=== PATIENT | female | born 1965 | race Caucasian/White ===

== ENCOUNTER 2016-04-20 18:43 | Emergency (ER) | payer MEDICARE, OTHER ==
[2016-04-20 21:23] LABS: HEMOGLOBIN 12.5 gm/dl (12.3-15.3); RED BLOOD COUNT 3.98 M/UL (4.00-5.10); WHITE BLOOD COUNT 11.7 K/UL (4.5-11.0)
== END 2016-04-21 | disposition other institution (70) ==
LOC: ER1 18:43
PROVIDERS: Nurse Practitioner Family
DX: K92.2 Gastrointestinal hemorrhage, unspecified (principal); D68.0 Von Willebrand disease; Z88.6 Allergy status to analgesic agent; Z88.8 Allergy status to other drugs, medicaments and biological substances; Z79.899 Other long term (current) drug therapy
CPT/HCPCS: 36415; 81001; 82272; 85025; 86850; 86900; 86901; 87086; 96374; 99285

== ENCOUNTER 2016-04-29 21:23 | Emergency (ER) | payer MEDICARE, OTHER | END 2016-04-29 23:25 | disposition home or self-care (01) | LOC: ER1 21:23 | DX: L27.0 Generalized skin eruption due to drugs and medicaments taken internally (principal); T45.8X5A Adverse effect of other primarily systemic and hematological agents, initial encounter; D68.0 Von Willebrand disease; F17.200 Nicotine dependence, unspecified, uncomplicated; Z88.1 Allergy status to other antibiotic agents; Z88.6 Allergy status to analgesic agent; Z88.8 Allergy status to other drugs, medicaments and biological substances; Z79.899 Other long term (current) drug therapy | CPT/HCPCS: 96374; 96375; 99283 ==